=== PATIENT | female | born 1985 | race Caucasian/White ===

== ENCOUNTER 2018-06-11 05:16 | Inpatient (IN) | payer OTHER ==
--- NOTE | 2018-06-09 16:07 | PAT Medication Instructions ---
Service Date Jun 09, 2018. Current Home Medication List Ferrous Sulfate (Fe Tabs), 325 MG PO BID Multivit/Min/Iron/Fol Ac/Pren ( Vitamin), 1 TAB PO DAILY Medication Instructions For Your Scheduled Surgery - Hold the following medications the morning of surgery: Ferrous Sulfate (Fe Tabs), 325 MG PO BID Multivit/Min/Iron/Fol Ac/Pren ( Vitamin), 1 TAB PO DAILY - Take the following medications as scheduled the night before surgery: Ferrous Sulfate (Fe Tabs), 325 MG PO BID If you have any questions please call us at [phone] or [phone] or [phone]
[2018-06-09 16:44] LABS: BASO % 0.1 %; BASO ABS # 0.01 K/uL (0-0.2); EOS % 0.4 %; EOS ABS # 0.03 K/uL (0-0.5); HEMOGLOBIN 11.1 g/dL (12.0-16.0); IG# 0.04 K/uL (0.00-0.02); LYMPH % 17.9 %; LYMPH ABS # 1.38 K/uL (1.2-3.4); MEAN CELL VOLUME 88.9 fL (80-100); MEAN CORPUSCULAR HEMOGLOBIN 27.4 pg (25-34); MEAN CORPUSCULAR HGB CONC 30.8 g/dl (32-36); MEAN PLATELET VOLUME 11.5 fL (7.4-10.4); MONO % 5.7 %; MONO ABS # 0.44 K/uL (0.11-0.59); NEUT % 75.4 %; PLATELET COUNT 140 K/uL (130-400); RED CELL DISTRIBUTION WIDTH CV 21.3 % (11.5-14.5); RED CELL DISTRIBUTION WIDTH SD 69.1 fL (36.4-46.3)
[~2018-06-11] VITALS: Ht 162.6 cm; Wt 74.1 kg
[2018-06-11] VITALS (18 sets, daily range): BP systolic 87–110; BP diastolic 48–58; PULSE 20–82; TEMP 35.5–36.8; O2SAT 96–99; Ht 162.6 cm; Wt 74.1 kg
[~2018-06-11 05:16] MED LIST: FERR-24 PO; OXYTOCIN INJ 10 UNITS/ML VIAL ONE; PRENTAB26 PO
[2018-06-11] MEDS ORDERED: LACTATED RINGER'S 1000ML 1,000 ML IV SCH ×3 (05:22→08:10)
[2018-06-11 05:54] LABS: BASO % 0.1 %; BASO ABS # 0.01 K/uL (0-0.2); EOS % 0.8 %; EOS ABS # 0.06 K/uL (0-0.5); HEMATOCRIT 34.8 % (37-47); HEMOGLOBIN 10.9 g/dL (12.0-16.0); IG# 0.05 K/uL (0.00-0.02); LYMPH % 23.2 %; LYMPH ABS # 1.76 K/uL (1.2-3.4); MEAN CELL VOLUME 88.1 fL (80-100); MEAN CORPUSCULAR HEMOGLOBIN 27.6 pg (25-34); MEAN CORPUSCULAR HGB CONC 31.3 g/dl (32-36); MONO % 7.8 %; MONO ABS # 0.59 K/uL (0.11-0.59); NEUT % 67.4 %; PLATELET COUNT 129 K/uL (130-400); RED CELL DISTRIBUTION WIDTH CV 21.2 % (11.5-14.5); WHITE BLOOD COUNT 7.57 K/uL (4.8-10.8)
[2018-06-11] MEDS ORDERED: CITRIC ACID/SODIUM CITRATE 15 ML UDC PO SCH (06:00)
[2018-06-11] MEDS ORDERED: VANCOMYCIN IV 1,000 MG in SODIUM CHLORIDE 0.9% 250ML 250 ML IV SCH (06:00)
[2018-06-11] MEDS ORDERED: MISOPROSTOL 200 MCG TAB ONE (06:52)
[2018-06-11] MEDS ORDERED: CARBOPROST TROMETHAMINE 250 MCG/ML AMP ONE (06:53)
[2018-06-11] MEDS ORDERED: BUPIVACAINE/DEXTROSE 0.75%-8.25% 2 ML AMP ONE (06:53)
[2018-06-11] MEDS ORDERED: METHYLERGONOVINE MALEATE 0.2 MG/ML AMP ONE ×2 (06:53→07:00)
--- NOTE | 2018-06-11 07:00 | History & Physical Bridge Note ---
H&P Re-Evaluation Bridge Note: I have examined the patient, reviewed the History & Physical and in the interval since the performance of the History & Physical I have noted the following changes of clinical significance: No changes noted
[2018-06-11] MEDS ORDERED: FENTANYL CITRATE INJ 50 MCG/1 ML 2 ML VIAL ONE (07:18)
[2018-06-11] MEDS ORDERED: MoRPHine SULFATE PF 1 MG/ML 10 ML AMP/VIAL ONE (07:18)
[2018-06-11] MEDS ORDERED: MEPERIDINE HCL 50 MG/ML CARP IV PRN ×2 (08:15)
[2018-06-11] MEDS ORDERED: DIPHTHERIA/TETANUS/PERTUSSIS 0.5 ML SYR/VIAL IM. ONE (08:15)
[2018-06-11] MEDS ORDERED: DiphenhydrAMINE HCL 50 MG/ML VIAL IV PRN ×2 (08:15→08:30)
[2018-06-11] MEDS ORDERED: PROMETHAZINE HCL INJ 25 MG in SODIUM CHLORIDE 0.9% 50ML 50 ML IV PRN (08:15)
[2018-06-11] MEDS ORDERED: SUPERCREAM 0.870 % 15GM JAR EXT PRN (08:15)
[2018-06-11] MEDS ORDERED: ONDANSETRON INJ 2 MG/ML 2 ML VIAL IV PRN ×3 (08:15→08:30)
[2018-06-11] MEDS ORDERED: HYDROCORTISONE ACETATE 25 MG SUPP PR PRN (08:15)
[2018-06-11] MEDS ORDERED: MAGNESIUM HYDROXIDE SUSP 30 ML UDC PO PRN (08:15)
[2018-06-11] MEDS ORDERED: LANOLIN OINT EXT PRN (08:15)
[2018-06-11] MEDS ORDERED: KETOROLAC TROMETHAMINE 30 MG/ML VIAL IV. PRN ×2 (08:15→08:30)
[2018-06-11] MEDS ORDERED: MEASLES, MUMPS & RUBELLA VIRUS VIAL SQ. ONE (08:15)
[2018-06-11] MEDS ORDERED: SENNA 8.6 MG TAB PO PRN (08:15)
[2018-06-11] MEDS ORDERED: BENZOCAINE 20% AER SPR 82.5 GM CAN EXT PRN (08:15)
[2018-06-11] MEDS ORDERED: OXYCODONE/ACETAMINOPHEN 5-325 TAB PO PRN ×2 (08:15)
[2018-06-11] MEDS ORDERED: DEXAMETHASONE SOD INJ 4 MG/ML VIAL ONE (08:20)
[2018-06-11] MEDS ORDERED: ONDANSETRON INJ 2 MG/ML 2 ML VIAL ONE (08:20)
[2018-06-11] MEDS ORDERED: EpHEDrine SULFATE 50MG/5ML SYR ONE (08:21)
[2018-06-11] MEDS ORDERED: NALOXONE HCL INJ 1 MG in SODIUM CHLORIDE 0.9% 1000ML 1,000 ML IV PRN (08:22)
[2018-06-11] MEDS ORDERED: SODIUM CHLORIDE 0.9% 1000ML 1,000 ML IV PRN (08:22)
[2018-06-11] MEDS ORDERED: LACTATED RINGER'S 1000ML 500 ML IV PRN (08:22)
[2018-06-11] MEDS ORDERED: NALOXONE HCL INJ 0.08 MG in SYRINGE 1.8 ML IV PRN (08:22)
--- NOTE | 2018-06-11 08:22 | [facility] Post Operative Brief Note ---
Immediate Operative Summary Operative Date Jun 11, 2018. Pre-Operative Diagnosis Complete Placenta Previa repeat Post-Operative Diagnosis Same as preop Procedure(s) Performed Section Low segment transverse Surgeon Dr. France Art Specialist Surgeon(s) Dr. Badleras Estimated Blood Loss 400 ml Findings Consistent with Post-Op Diagnosis live female Apgars 9/9 weight pending Specimens Handled by Nursery Staff, Placenta and Cord Blood Drains None Anesthesia Type Spinal MAC Complication(s) none Disposition Accompanied Pt To Recover: yes Disposition: Recovery Room / PACU Overlapping Procedure I was present for: the critical portions of procedure. I was immediately available: during the entire case Back up surgeon: used during listed procedure
[2018-06-11] MEDS ORDERED: NALBUPHINE HCL INJ 10 MG/ML 1ML AMP IV PRN (08:30)
[2018-06-11] MEDS ORDERED: NO NARCOTICS OR SEDATIVES SCH (08:30)
[2018-06-11] MEDS ORDERED: MoRPHine SULFATE PF 1 MG/ML 10 ML AMP/VIAL EPI PRN (08:30)
[2018-06-11] MEDS ORDERED: FENTANYL CITRATE INJ 50 MCG/1 ML 2 ML VIAL IV PRN (08:30)
[2018-06-11] MEDS ORDERED: ACETAMINOPHEN IV 100 ML IV PRN (08:30)
[2018-06-11] MEDS ORDERED: NALOXONE HCL 0.4 MG/1 ML VIAL/CARP IV PRN (08:30)
[2018-06-11] MEDS ORDERED: ATROPINE SULFATE 0.1 MG/ML 5ML SYR IV PRN (08:30)
[2018-06-11] MEDS ORDERED: MoRPHine SULFATE 2 MG/ML CARP IV PRN (08:30)
[2018-06-11] MEDS ORDERED: EpHEDrine SULFATE INJ 50 MG/ML AMP IV PRN ×2 (08:30)
[2018-06-11] MEDS: SIMETHICONE 80 MG CHEW PO SCH ×4 (09:00→19:49)
--- NOTE | 2018-06-11 09:07 | Anesthesiology Progress Note ---
Anesthesia Post Op Note Date & Time Jun 11, 2018 at 09:06 Vital Signs Pain Intensity: 0 Vital Signs Past 12 Hours Date Time Temp Pulse Resp B/P (MAP) Pulse Ox O2 Delivery O2 Flow Rate FiO2 06/11/18 08:55 77 22 95/60 97 Room Air 06/11/18 08:45 63 14 95/52 98 Room Air 06/11/18 08:35 75 14 98/60 98 Room Air 06/11/18 08:25 36.1 76 20 96/51 98 Room Air Notes Mental Status: alert / awake / arousable, participated in evaluation Pt Amnestic to Procedure: Yes Nausea / Vomiting: adequately controlled Pain: adequately controlled Airway Patency, RR, SpO2: stable & adequate BP & HR: stable & adequate Hydration State: stable & adequate Neuraxial Anesthesia: was administered, sensory block is resolving Anesthetic Complications: no major complications apparent
[2018-06-11] MEDS: OXYTOCIN INJ 20 UNITS in LACTATED RINGER'S 1000ML 1,000 ML IV SCH ×2 (10:53→17:45)
--- NOTE | 2018-06-11 12:20 | OPERATIVE REPORT ---
DATE OF OPERATION: 06/11/2018 PREOPERATIVE DIAGNOSES: Complete placenta previa and repeat section. POSTOPERATIVE DIAGNOSES: Complete placenta previa and repeat section. PROCEDURE PERFORMED: Repeat section, low segment transverse. SURGEON: Dr. France. ACOUSTICS TEACHER: Dr. Balderas. ESTIMATED BLOOD LOSS: 400 mL. TOTAL FLUIDS: 1800 mL LR. URINE OUTPUT: 200 mL. FINDINGS: Live female, Apgars 9 and 9. weight is 5 pounds 6 ounces. There was a nuchal cord x1. CLINICAL HISTORY: The patient is a 32-year-old female who was admitted for an elective repeat section at 37 weeks due to a complete placenta previa. Patient had a recent scan confirming complete previa. She was admitted to the main OR for a repeat section done electively due to placenta previa. DESCRIPTION OF PROCEDURE: Under satisfactory spinal anesthesia, the patient was prepped and draped in usual sterile fashion. Time out was called. The patient received antibiotics preop. A Pfannenstiel incision was made through a prior scar, entering through the abdominal cavity into the abdominal cavity and peritoneal cavity without difficulty. The bladder flap was made. The incision was made high on the uterus and entering into the uterine cavity. The incision was widened in the AP diameter. The amniotic sac was nicked and clear. The was then delivered from the vertex presentation with the aid of fundal pressure. There was a nuchal cord x1 that was reduced at time of delivery. The cord was doubly clamped and cut. Baby suctioned and handed to knot borer. Apgars were 9 and 9. weight 6 ounces. Cord blood was obtained. Placenta delivered spontaneously and intact. Uterus was then exteriorized. Ring forceps were then placed on both angles in the inferior margin and another ring used to dilate the cervix. Uterus was closed in double layer closure with 0 Vicryl suture in a continuous interlocking fashion followed by second imbricating suture of 0 Vicryl suture. Contents of the lower uterine segment were inspected, no active bleeding. Contents were then irrigated to clear. Uterus was then placed back into the normal anatomical position. The tubes, ovaries bilaterally were found to be within normal limits. The lower uterine segment was once more inspected. No active bleeding. The fascia was then reapproximated with 0 Vicryl suture in a continuous fashion from both angles. Subcuticular space was irrigated. Bleeders were cauterized. Skin was then reapproximated with 4-0 Monocryl suture. Steri-Strips were then applied. Clear urine was noted in the Valentin 200 mL, EBL 400 mL, total fluids 1800 mL. The final sponge, needle and instrument counts were found to be correct. The patient was then placed supine on stretcher and she was taken to the main recovery room for recovery. I attest to the content of the Intraoperative Record and any orders documented therein. Any exception s are noted below.
[2018-06-11] MEDS: FERROUS SULFATE 325 MG TAB PO SCH (19:49)
[2018-06-11] MEDS: DOCUSATE SODIUM 100 MG CAP PO SCH (19:49)
[2018-06-12] VITALS (8 sets, daily range): BP systolic 84–100; BP diastolic 45–55; PULSE 56–64; TEMP 36.7–37; O2SAT 96–99
[2018-06-12] MEDS ORDERED: DC INTRASPINAL MORPHINE SCH (01:00)
[2018-06-12 07:09] LABS: BASO % 0.1 %; BASO ABS # 0.01 K/uL (0-0.2); EOS % 0.5 %; EOS ABS # 0.04 K/uL (0-0.5); HEMATOCRIT 29.3 % (37-47); HEMOGLOBIN 9.3 g/dL (12.0-16.0); IG# 0.04 K/uL (0.00-0.02); LYMPH % 15.7 %; LYMPH ABS # 1.33 K/uL (1.2-3.4); MEAN CELL VOLUME 88.3 fL (80-100); MEAN CORPUSCULAR HGB CONC 31.7 g/dl (32-36); MEAN PLATELET VOLUME 11.6 fL (7.4-10.4); MONO % 6.4 %; MONO ABS # 0.54 K/uL (0.11-0.59); NEUT % 76.8 %; NEUT ABS # 6.53 K/uL (1.4-6.5); PLATELET COUNT 119 K/uL (130-400); RED CELL DISTRIBUTION WIDTH CV 21.1 % (11.5-14.5); RED CELL DISTRIBUTION WIDTH SD 67.8 fL (36.4-46.3); WHITE BLOOD COUNT 8.49 K/uL (4.8-10.8)
[2018-06-12] MEDS: PRENATAL VITAMIN TAB PO SCH (08:27)
[2018-06-12] MEDS: SIMETHICONE 80 MG CHEW PO SCH ×4 (08:27→19:33)
[2018-06-12] MEDS: FERROUS SULFATE 325 MG TAB PO SCH ×2 (08:27→19:33)
[2018-06-12] MEDS: DOCUSATE SODIUM 100 MG CAP PO SCH ×2 (08:27→19:33)
[2018-06-12] MEDS: IBUPROFEN 600 MG TAB PO PRN ×3 (08:33→22:34)
--- NOTE | 2018-06-12 08:46 | OB/GYN Progress Note ---
NET SOLUTIONS ARCHITECT Progress Note Date of Service: Jun 12, 2018. Patient is seen and examined. She feels well, no complaints. Pain is under control with oral meds. Ambulating without dizziness Voiding without difficulty Tolerating clear diet with out N&V Flatus neg BM neg Bleeding is minimal No fever/ chills/ CP/ SOB/ N&V/ Leg pain Breast feeding without problems Date Time Temp Pulse Resp B/P (MAP) Pulse Ox O2 Delivery O2 Flow Rate FiO2 06/12/18 04:00 36.8 61 18 93/52 (66) 98 Room Air 06/12/18 01:00 18 98 06/12/18 00:10 18 98 06/11/18 23:50 98 Room Air 06/11/18 23:50 36.8 61 18 94/48 (63) 98 Room Air 06/11/18 23:10 18 98 06/11/18 22:20 18 98 06/11/18 21:20 16 97 06/11/18 20:15 16 97 06/11/18 19:30 36.6 67 18 87/50 (62) 97 Room Air 06/11/18 19:30 18 97 06/11/18 19:30 97 Room Air 06/11/18 18:45 16 96 06/11/18 17:15 18 97 06/11/18 15:45 36.4 66 18 89/49 (62) 98 Room Air 06/11/18 15:45 18 98 06/11/18 14:20 36.3 06/11/18 14:20 16 97 06/11/18 13:19 16 99 06/11/18 12:20 35.5 66 16 87/49 (62) 99 Room Air 06/11/18 12:20 16 99 06/11/18 11:20 98 Room Air 06/11/18 11:20 18 98 06/11/18 11:20 36.4 70 20 100/57 (71) 98 Room Air 06/11/18 11:20 98 Room Air 06/11/18 10:50 18 98 06/11/18 10:20 36.4 77 20 103/54 (70) 98 Room Air 06/11/18 09:50 20 98 06/11/18 09:50 82 20 110/58 (75) Room Air 06/11/18 09:20 Room Air 06/11/18 09:20 20 99 8/10/18 09:20 36.7 76 20 95/57 (70) Room Air 06/11/18 09:15 71 16 94/56 97 Room Air 06/11/18 09:05 36.5 81 13 96/57 93 Room Air 06/11/18 08:55 77 22 95/60 97 Room Air 06/11/18 08:45 63 14 95/52 98 Room Air PE: General: Alert, orientedx3, NAD CVS: S1S2 RRR Lungs; CTAB Abd: soft, NT, ND, BS+, fundus firm, below Umbilicus Incision: Clean, dry, intact Perineum intact, Lochia rubra minimal Ext; NT, no edema AP: 32 yo s/p C Section for previa, pod# 1 VSS Afebrile doing well Continue routine postop care Encourage ambulation, PO intake All questions were answered Possible D/C home tomorrow
[2018-06-12] MEDS ORDERED: OXYC-57 PO (08:47)
[2018-06-12] MEDS ORDERED: MTR600X PO (08:47)
--- NOTE | 2018-06-12 08:48 | Discharge Instructions ---
Discharge Instructions Date of Service Jun 12, 2018. Admission Reason for Admission: Complete Placenta Previa; Prior Caesarean Delivery Discharge Discharge Diagnosis / Problem: Repeat C section Discharge Goals Goal(s): Routine recovery after Medications Continue Dispensed Medications: lansinoh Activity Recommendations Activity Limitations: as noted below ACTIVITY RECOMMENDATIONS: * Gradual return to full activity over the next 2-3 weeks. * No lifting - nothing heavier than baby over the next 2-3 weeks. * Do not engage in vigorous exercise, sexual activity or sports until cleared by your physician. * Do not drive or operate any motorized equipment until cleared by your physician. * You may shower/bathe daily. BREAST CARE: If you are not breast feeding: * Wear a supportive bra 24 hours a day for one to two weeks. * Avoid stimulating your breasts and nipples as much as possible during the first few weeks after delivery. * When taking a shower, have the warm water hit your back, not breasts. * When your breasts feel full, apply ice packs. Usually three to four times a day helps ease the discomfort. * Take a mild pain medication (Tylenol/Motrin) when you are uncomfortable. If breast feeding: * Use breast milk to lubricate nipples. Lansinoh cream may be used for sore nipples. You do not need to remove cream prior to breast feeding. If using a different brand of cream, check the label for directions regarding removal of cream prior to nursing. * Wear a supportive bra. * If having problems with breasts or breast feeding, call a java developer consultant or your health care provider. OVER THE COUNTER MEDICATION: * For discomfort or pain, you may use Acetaminophen (Tylenol), Ibuprofen (Advil ), or Naproxen (Aleve) following the package directions. * For constipation you may use Colace following the package directions. SPECIAL CARE INSTRUCTIONS: When you are discharged from the hospital, it is important for you to follow the instructions listed below: * During the first week at home, you should be able to care for yourself and your baby. In addition, the usual light household activities are encouraged. * Limit your activities to the way you feel. Do not try to clean the house or move furniture. Be sensible. * If you actively engage in sports and have done so up until the time of your delivery, you may resume these activities as soon as you feel able. This may take up to one month or even longer. Use good judgment. * Continue to take your vitamins for at least six weeks after the of your baby. * Your diet need not be limited unless you were on a special diet before your delivery. Breast-feeding mothers need around 2500 calories per day and at least 64-80 ounces of fluid per day (8 to 10 glasses). * You should eat foods from the four major food groups. Crash diets or fad diets are to be avoided. Eating lean meats, fresh fruits and vegetables, low-fat dairy products, high fiber foods and a regular exercise program, will help you get back to your pre- weight without putting your health at risk. * Constipation is sometimes a problem after delivery. Take a mild laxative as needed. If breast feeding, Milk of Magnesia is acceptable to use. You may use a suppository or Fleets enema if no episiotomy. * A daily shower or tub bath is suggested. Be sure to thoroughly and gently dry the perineum. * A bloody vaginal discharge will usually continue until around four weeks post . A small amount of bleeding may continue for as long as six weeks. Vaginal discharge changes from the bright red bleeding after delivery to pink then brownish and finally yellowish-pink before becoming white and disappearing. * Bleeding may increase with activity. Your first period may come in 4-8 weeks. If you are breast feeding, your period may be delayed even longer. * [place] (sex) can begin whenever both you and your partner feel comfortable and do not have any form of genital infection. It is recommended that you wait at least six weeks for internal and external healing to occur. If you have questions, please talk to your health care practitioner. A condom should be used to prevent infection and . * Foreplay, gentle intercourse and lubrication is very important the first several times to prevent pain. A water-based lubricant such as K-Y jelly or Astroglide may be used. * Tampons and/or Douching should be avoided until after six weeks check-up. * If you have RH negative blood and your baby is RH positive, you will receive RHOGAM by injection prior to discharge. The nurse will give you a card to keep with you that has the date and place that you received RHOGAM after delivery. * During your care, you had a Rubella screen done to check for the presence of rubella antibodies in your blood. If your test was negative, you will receive a Rubella vaccine prior to discharge. This vaccine may cause a fever, soreness at the injection site and flu-like symptoms. If these symptoms persist, notify your health care practitioner. is not advised for three months after a Rubella vaccine. * Verbalizes understanding of car seat law as reviewed with patient nursing. * Car Seat hand-out given and reviewed with patient by nursing. * Shaken baby information reviewed with patient by nursing. Call you doctor if: * Heavy bleeding (saturating several pads an hour) or passing clots the size of your fist. * A fever >101 degrees F (38.3 degrees C) on two occasions four hours apart and /or chills. * Unusual pain in the pelvic or vaginal areas. Pain should improve each day . * Call the doctor for any increased redness, drainage or swelling around the incision and any pain unrelieved by prescribed pain medication. * Any signs or symptoms of phlebitis (possible blood clots forming in the veins ): leg pain, warm, red or swollen area on leg. * "Baby Blues" lasting longer than two weeks. If you have any questions or concerns, call your health care practitioner at . FOLLOW-UP VISIT: * Incision check (staple removal) in 1 week. Please call doctor's office at to set up appointment. * Please call the office at to schedule a 6 week examination. It is important you keep this appointment. * It is important for you to make arrangements for either yearly or twice yearly check-ups thereafter. . Current Hospital Diet Patient's current hospital diet: Clear Liquid Diet Discharge Diet Recommended Diet: Regular Diet Procedures Procedures Performed: Section Low segment transverse Pending Studies Studies pending at discharge: no Medical Emergencies . Who to Call and When: Medical Emergencies: If at any time you feel your situation is an emergency, please call [phone] immediately. . Non-Emergent Contact Non-Emergency issues call your: Receiving And Processing Supervisor, Surgeon Call Non-Emergent contact if: temperature is above 100.5, your pain is not controlled, your pain is worsening, wound has increased drainage, wound has increased redness, wound has increased pain, you have any medication questions . . "Provider Documentation" section prepared by Reed Holloway. .
[2018-06-12] MEDS ORDERED: BISACODYL 5 MG TABEC PO ONE (22:00)
[2018-06-13] MEDS ORDERED: BISACODYL 10 MG SUPP PR PRN (06:00)
--- NOTE | 2018-06-13 06:27 | OB/GYN Progress Note ---
MANAGER PRODUCE Progress Note Date of Service: Jun 13, 2018. Patient is seen and examined. She feels well, no complaints. Likes to be discharged home today Pain is under control with oral meds. Ambulating without dizziness Voiding without difficulty Tolerating regular diet with out N&V Flatus + BM neg Bleeding is minimal No fever/ chills/ CP/ SOB/ N&V/ Leg pain Breast feeding without problems Date Time Temp Pulse Resp B/P (MAP) Pulse Ox O2 Delivery O2 Flow Rate FiO2 06/12/18 23:30 96 Room Air 06/12/18 23:30 37.0 59 18 84/45 (58) 96 Room Air 06/12/18 20:40 59 100/49 (66) 06/12/18 15:30 97 Room Air 06/12/18 15:30 36.7 56 16 84/47 (59) 97 Room Air 06/12/18 12:00 36.8 59 16 89/47 (61) 99 Room Air 06/12/18 07:40 36.7 64 16 86/55 (65) 99 Room Air 06/12/18 07:40 Room Air Last 24 Hours Test 06/12/18 06:35 06/12/18 06:48 06/13/18 06:00 Urine Color YELLOW Urine Appearance CLEAR Urine pH 7.0 Urine Specific [place] 1.003 Urine Protein NEG Urine Glucose (UA) NEG Urine Ketones NEG Urine Occult Blood NEG Urine Nitrite NEG Urine Bilirubin NEG Urine Urobilinogen NEG Urine Leukocyte Esterase NEG White Blood Count 8.49 K/uL Red Blood Count 3.32 M/uL Hemoglobin 9.3 g/dL Hematocrit 29.3 % Mean Corpuscular Volume 88.3 fL Mean Corpuscular Hemoglobin 28.0 pg Mean Corpuscular Hemoglobin Concent 31.7 g/dl Platelet Count 119 K/uL Mean Platelet Volume 11.6 fL Neutrophils (%) (Auto) 76.8 % Lymphocytes (%) (Auto) 15.7 % Monocytes (%) (Auto) 6.4 % Eosinophils (%) (Auto) 0.5 % Basophils (%) (Auto) 0.1 % Neutrophils # (Auto) 6.53 K/uL Lymphocytes # (Auto) 1.33 K/uL Monocytes # (Auto) 0.54 K/uL Eosinophils # (Auto) 0.04 K/uL Basophils # (Auto) 0.01 K/uL RDW Standard Deviation 67.8 fL RDW Coefficient of Variation 21.1 % Immature Granulocyte % (Auto) 0.5 % Immature Granulocyte # (Auto) 0.04 K/uL Anisocytosis PRESENT PE: General: Alert, orientedx3, NAD CVS: S1S2 RRR Lungs; CTAB Abd: soft, NT, ND, BS+, fundus firm, below Umbilicus Incision: Clean, dry, intact Perineum intact, Lochia rubra minimal Ext; NT, no edema AP: 32 yo s/p RC Section, pod# 2 VSS Afebrile doing well Continue routine postop care Encourage ambulation, PO intake All questions were answered Desires d/c home D/C home after labs and if baby will be discharged
[2018-06-13 07:02] LABS: HEMATOCRIT 31.9 % (37-47)
[2018-06-13 07:30] VITALS: BP 90/54; PULSE 59; TEMP 37.4; O2SAT 99
[2018-06-13] MEDS ORDERED: MISC-836 (07:42)
[2018-06-13] MEDS: FERROUS SULFATE 325 MG TAB PO SCH (08:26)
[2018-06-13] MEDS: DOCUSATE SODIUM 100 MG CAP PO SCH (08:27)
[2018-06-13] MEDS: PRENATAL VITAMIN TAB PO SCH (08:27)
[2018-06-13] MEDS: IBUPROFEN 600 MG TAB PO PRN ×2 (08:27→12:43)
[2018-06-13] MEDS: SIMETHICONE 80 MG CHEW PO SCH ×2 (08:27→12:43)
[2018-06-13] MEDS ORDERED: ACETAMINOPHEN 325 MG TAB PO STA (10:20)
--- NOTE | 2018-06-13 10:24 | OB/GYN Progress Note ---
REO ASSET MANAGER Progress Note Date of Service: Jun 13, 2018. I was called that she had MAYER this morning when she got up Patient states " not too bad" it was more intense earlier. She describes mild when she is sitting up or standing, none when she likes up Pain is 1-2/10, was 5/10 No change in vision/ N&V/ numbness / tingling/ weakness Date Time Temp Pulse Resp B/P (MAP) Pulse Ox O2 Delivery O2 Flow Rate FiO2 06/12/18 23:30 96 Room Air 06/12/18 23:30 37.0 59 18 84/45 (58) 96 Room Air 06/12/18 20:40 59 100/49 (66) 06/12/18 15:30 97 Room Air 06/12/18 15:30 36.7 56 16 84/47 (59) 97 Room Air 06/12/18 12:00 36.8 59 16 89/47 (61) 99 Room Air Neurologic exam normal She was flat in bed with no MAYER, 0/10 She then stood up and walked in the room and stated 1-2/10 frontal MAYER No neck stiffness She has not been taking any Percoset, as taking Motrin only Recommended plain tylenol and coffee and observe if no improvement when will call anesthesiology All questions were answered
[2018-06-13 14:05] VITALS: BP_DIAS 54; PULSE 59; TEMP 37.4
--- NOTE | 2018-06-16 10:42 | DISCHARGE SUMMARY ---
REASON FOR ADMISSION AND HOSPITAL COURSE: The patient is a 32-year-old female who was admitted for elective repeat section at 37 weeks due to a complete placenta previa. The patient underwent an elective repeat section at 37 weeks due to a complete placenta previa as recommended by [facility]. The patient delivered under spinal anesthesia in the main OR delivering a live female, Apgars were 9 and 9, weight 5 pounds 6 ounces. There was a nuchal cord x1. Hospital course was unremarkable. The patient was subsequently discharged in stable condition. Home going instructions were given. Condition on discharge was stable. DISCHARGE INSTRUCTIONS: Medications on discharge include Motrin and oxycodone and continue medications include vitamins and iron. The patient will be followed up in the office in 1 week for an incision check. Regular diet on discharge. CONDITION ON DISCHARGE: Stable.
== END 2018-06-13 14:05 | disposition home or self-care (01) | DRG 766 ==
LOC: C.LD 05:16 → C.OBG 09:26 → EDSTATUS 15:22
PROVIDERS: ADMIT Obstetrics & Gynecology; ATTEND Obstetrics & Gynecology
PROC: 10D00Z1 Extraction of Products of Conception, Low, Open Approach (ICD-10-PCS; principal; 2018-06-11 07:00)
DX: O44.03 Complete placenta previa NOS or without hemorrhage, third trimester (principal); O34.211 Maternal care for low transverse scar from previous cesarean delivery; O69.81X0 Labor and delivery complicated by cord around neck, without compression, not applicable or unspecified; Z3A.37 37 weeks gestation of pregnancy; Z37.0 Single live birth